=== PATIENT | male | born 1965 | race Caucasian/White ===

== ENCOUNTER 2018-04-22 17:57 | Emergency (ER) | payer OTHER ==
[~2018-04-22] VITALS: Ht 177.8 cm; Wt 88.2 kg
[2018-04-22 18:00] VITALS: BP 137/87
[2018-04-22] MEDS ORDERED: PROPARACAINE OPHTH 0.5%, 15ML EACHEYE ONE (19:00)
[2018-04-22] MEDS ORDERED: FLUORESCEIN OPHTHALMIC 1 MG STRIP EACHEYE ONE (19:00)
[2018-04-22] MEDS ORDERED: IBUPROFEN 200 MG TABLET PO ONE (19:00)
[2018-04-22] MEDS ORDERED: PROPARACAINE OPHTH 0.5%, 15ML ONE (19:02)
[2018-04-22] MEDS ORDERED: IBUPROFEN 200 MG TABLET ONE (19:03)
== END 2018-04-22 20:31 | disposition home or self-care (01) ==
LOC: ED 20:05
DX: T20.17XA Burn of first degree of neck, initial encounter (principal); T20.15XA Burn of first degree of scalp [any part], initial encounter; T20.16XA Burn of first degree of forehead and cheek, initial encounter; T20.14XA Burn of first degree of nose (septum), initial encounter; T20.13XA Burn of first degree of chin, initial encounter; T20.112A Burn of first degree of left ear [any part, except ear drum], initial encounter; T26.12XA Burn of cornea and conjunctival sac, left eye, initial encounter; T26.02XA Burn of left eyelid and periocular area, initial encounter; T31.0 Burns involving less than 10% of body surface; H10.32 Unspecified acute conjunctivitis, left eye; E03.9 Hypothyroidism, unspecified; X08.8XXA Exposure to other specified smoke, fire and flames, initial encounter; Y93.89 Activity, other specified; Y92.009 Unspecified place in unspecified non-institutional (private) residence as the place of occurrence of the external cause; Y99.8 Other external cause status
CPT/HCPCS: 16000; 99284

== ENCOUNTER → 2018-08-19 | Outpatient (CLI) | payer OTHER ==
[~2018-08-19] MED LIST: GADOBUTROL 7.5 MMOL/7.5 ML VIAL ONE
== END | disposition home or self-care (01) ==
LOC: ROC 14:25
PROVIDERS: ATTEND Radiology Radiation Oncology
DX: D35.2 Benign neoplasm of pituitary gland (principal)
CPT/HCPCS: 70553; A9585

== ENCOUNTER → 2018-08-21 | Outpatient (CLI) | payer OTHER | END | disposition home or self-care (01) | LOC: ROC 07:59 | PROVIDERS: ATTEND Radiology Radiation Oncology | DX: Z08 Encounter for follow-up examination after completed treatment for malignant neoplasm (principal); D35.2 Benign neoplasm of pituitary gland | CPT/HCPCS: 99213; G0463 ==